=== PATIENT | female | born 1985 | race African-American/Black ===

== ENCOUNTER 2022-05-21 05:38 | Day surgery (SDC) | payer OTHER ==
[2022-05-17 15:03] VITALS: BMI 25.9
[2022-05-21] MEDS ORDERED: fentaNYL PF 100 MCG/2 ML SYRINGE ONE (06:28)
[2022-05-21] MEDS ORDERED: CEFAZOLIN 2 GM VIAL ONE (06:41)
[2022-05-21] MEDS ORDERED: Sodium Chloride 0.9% 100 ML ONE (06:41)
[2022-05-21] MEDS ORDERED: Thrombin 5000 UNITS/5 ML VIAL ONE (06:49)
[2022-05-21] MEDS ORDERED: Vancomycin 1 GM VIAL ONE (06:49)
[2022-05-21 06:50] LABS: Hemoglobin 12.9 g/dL (12.0-16.0); Mean Corpuscular HGB CONC 32.7 g/dL (32.0-36.0); Mean Corpuscular Hemoglobin 29.1 pg (27.0-31.0); Mean Platelet Volume 7.9 fL (7.4-10.4); Platelet Count 274 10x3/uL (130-400); RBC Distribution Width 11.4 % (11.5-14.5); Red Blood Cell (RBC) Count 4.42 mill/uL (4.20-5.40); White Blood Cell (WBC) Count 8.1 10x3/uL (4.8-10.8)
[2022-05-21] MEDS ORDERED: Scopolamine 1.5 mg/72 hour Patch ONE (06:56)
[2022-05-21] MEDS ORDERED: Midazolam HCl 2 mg/2 ml Vial ONE (06:56)
[2022-05-21 07:07] LABS: Anion Gap 13 mmol/L (10-20); BUN (Urea Nitrogen) 13 mg/dL (7.0-18.7); Calc. Creatinine Clearance 114 mL/min (70-130); Calcium 9.2 mg/dL (7.8-10.44); Carbon Dioxide 22 mmol/L (22-29); Chloride 109 mmol/L (98-107); Estimated GFR 104; Glucose 80 mg/dL (70-105); Potassium 3.9 mmol/L (3.5-5.1); Sodium 140 mmol/L (136-145)
[2022-05-21] MEDS ORDERED: Promethazine HCl 25 MG/ML VIAL ONE (07:26)
[2022-05-21] MEDS ORDERED: ePHEDrine 50 MG/ML VIAL ONE (07:31)
[2022-05-21] MEDS ORDERED: PROPOFOL 200 MG/20 ML VIAL ONE (07:31)
[2022-05-21] MEDS ORDERED: Lidocaine 1% PF 5 ML VIAL ONE (07:31)
[2022-05-21] MEDS ORDERED: Ondansetron PF 4 MG/2 ML Vial ONE (07:31)
[2022-05-21] MEDS ORDERED: NEOSTIGMINE 3 MG/3 ML SYR 3 MG/3 ML SYRINGE ONE (07:31)
[2022-05-21] MEDS ORDERED: Rocuronium Bromide 10 MG/ML (10ML VIAL) ONE (07:31)
[2022-05-21] MEDS ORDERED: Glycopyrrolate 0.2 MG/ML 5 ML SYRINGE ONE (07:31)
[2022-05-21] MEDS ORDERED: Dexamethasone 20 MG/5 ML VIAL ONE (07:31)
[2022-05-21] MEDS ORDERED: SUGAMMADEX SODIUM 200 MG/2 ML VIAL ONE (09:05)
[2022-05-21] MEDS ORDERED: Fentanyl 100 MCG/2 ML VIAL ONE ×2 (09:30→10:23)
[2022-05-21] MEDS ORDERED: HYDROcodone/Acetaminophen 5/325 mg Tablet ONE ×2 (11:28→12:59)
== END 2022-05-21 13:39 | disposition home or self-care (01) ==
LOC: EDBD → SDC 05:38
PROVIDERS: ATTEND Neurological Surgery
PROC: 0SG0071 Fusion of Lumbar Vertebral Joint with Autologous Tissue Substitute, Posterior Approach, Posterior Column, Open Approach (ICD-10-PCS; principal; 2022-05-21)
DX: M43.16 Spondylolisthesis, lumbar region (principal); M48.061 Spinal stenosis, lumbar region without neurogenic claudication; F17.200 Nicotine dependence, unspecified, uncomplicated
CPT/HCPCS: 36415; 80048; 85027; 93005; 93010; C1713; C1768; C1776; J1100; J2250; J2405; J2550; J2704; J3010; J3370; J3490

== ENCOUNTER 2022-06-11 09:47 | Outpatient (CLI) | payer OTHER | END 2022-06-11 09:48 | disposition home or self-care (01) | LOC: TBSIIMAG 09:47 | PROVIDERS: ATTEND Neurological Surgery | DX: M43.16 Spondylolisthesis, lumbar region (principal); M47.816 Spondylosis without myelopathy or radiculopathy, lumbar region; Z98.890 Other specified postprocedural states | CPT/HCPCS: 72100 ==